=== PATIENT | male | born 1975 | race Caucasian/White ===

== ENCOUNTER → 2021-02-28 13:07 | Outpatient (BNVA) | payer OTHER, SELFPAY | PROVIDERS: Visit Provider Nurse Practitioner Family | DX: Z20.822 Contact with and (suspected) exposure to COVID-19 (principal) | CPT/HCPCS: 87635 ==

== ENCOUNTER → 2021-11-17 14:33 | Outpatient (BNVA) | payer MEDICAID, SELFPAY | PROVIDERS: Referring Provider Nurse Practitioner Family; Visit Provider Surgery | DX: K60.3 Anal fistula (principal); K61.0 Anal abscess | CPT/HCPCS: 99203 ==

== ENCOUNTER 2021-12-14 06:00 | Outpatient (RCR) | payer MEDICAID, SELFPAY | END 2022-01-12 23:59 | disposition home or self-care (01) | LOC: SPT 06:00 | PROVIDERS: Referring Provider Nurse Practitioner Family; Visit Provider Nurse Practitioner Family | DX: G89.29 Other chronic pain (principal); M54.42 Lumbago with sciatica, left side; M54.41 Lumbago with sciatica, right side | CPT/HCPCS: 97750 ==